=== PATIENT | female | born 1995 | race Caucasian/White ===

== ENCOUNTER 2019-03-10 16:06 | Outpatient (CLI) | payer OTHER, SELFPAY ==
[2019-03-10 16:30] VITALS: BP 116/69; PULSE 98; RESP 18; TEMP 36.9; O2SAT 98; BMI 29.2
== END 2019-03-10 18:01 | disposition home or self-care (01) ==
LOC: OBOUT 16:12 → OB 16:15
PROVIDERS: PCP Specialist; Visit Provider Nurse Practitioner Obstetrics & Gynecology
DX: O21.8 Other vomiting complicating pregnancy (principal); Z3A.33 33 weeks gestation of pregnancy; R19.7 Diarrhea, unspecified
CPT/HCPCS: 59025; 96360

== ENCOUNTER 2019-09-24 12:16 | Emergency (ER) | payer BC, OTHER, SELFPAY ==
[2019-09-24 12:17] VITALS: BP 109/80; PULSE 87; RESP 20; TEMP 36.8; O2SAT 98; BMI 24.7
--- NOTE | 2019-09-24 12:31 | CT_ITS ---
PROCEDURE: CT ABDOMEN PELVIS WO CON CLINICAL INDICATION: possible IUD dislodge Pain, discomfort COMPARISON: No exams were available for comparison TECHNIQUE: Axial images obtained with sagittal and coronal reformats. All CT scans at the facility use one or more dose reduction, viz: automated exposure control, ma/kV adjustment per patient size (including targeted exams where dose is matched to indication, i.e. head), or iterative reconstruction technique. FINDINGS: LOWER THORAX: There is patchy density in the medial aspect of the right middle lobe suggesting an area of atelectasis or infiltrate. ABDOMEN & PELVIS: The liver, gallbladder, spleen, adrenal glands, pancreas, and kidneys have an unremarkable unenhanced appearance. No intestinal obstruction or free air. No evidence of appendicitis. No intestinal obstruction or free air. There is an IUD present. The IUD is in the lower uterine segment more inferior than what 1 would expect. The uterus is anteverted/anteflexed. The left lateral limb of the IUD is near the peripheral aspect of the uterus. No pelvic fluid or adnexal mass evident. No acute bony anomaly. IMPRESSION: 1. There is an IUD present in the lower uterine segment and is somewhat lower than where 1 with normally expect with the left lateral limb near the surface of the uterus but not protruding through the uterus. 2. No pelvic fluid collections. 3. Right basilar atelectasis or infiltrate within the right middle lobe. 4. Otherwise negative CT abdomen pelvis Dictated by: Jamal Rosales MD 09/24/2019 13:32 Electronically signed by Jamal Rosales MD in [place] 09/24/2019 13:32
[2019-09-24 12:46] LABS: Appearance,Urine CLEAR (Clear); Bilirubin,Urine Negative (Negative); Blood, Urine Negative (Negative); Color,Urine YELLOW (Yellow); Glucose,Urine (UA) Negative (Negative); Ketones,Urine Negative (Negative); Leukocyte Esterase,Urine Negative (Negative); Nitrate,Urine Negative (Negative); Protein,Urine Negative (Negative); Specific Gravity, Urine 1.025 (1.005-1.030); Urobilinogen,Urine 0.2 EU/dl (0.2)
[2019-09-24 12:47] LABS: Microscopic, Urine URINE MICROSCOPIC (MICROSCOPIC); Urine Pregnancy, HCG Qual. Negative (Negative)
[2019-09-24 12:48] LABS: Amorphous Sediment,Urine 1+ /lpf; WBC,Urine Occasional #/hpf (0-3)
--- NOTE | 2019-09-24 13:10 | PC.NURSE ---
pt return from ct
--- NOTE | 2019-09-24 14:43 | HMH.EDGENADL ---
ED Disposition Clinical Impression: IUD (intrauterine device) in place Disposition: Home, Self-Care Condition on Discharge: Good Instructions: DI for Urinary Tract Infection (UTI), DI for Urinary Tract Infection in Children Additional Instructions: Follow-up with your [facility] Referrals: Belia Davila [Primary Care Provider] - - Critical Care Critical Care Time: No Attestation: On 09/24/19, the high probability of a clinically significant, sudden or life threatening deterioration of the following system(s) required my full and direct attention, intervention and personal management. The time I documented below is in addition to time spent performing reported procedures but includes the following listed in this critical care notation. Medical Decision Making - Medical Records Medical records reviewed: Yes: I reviewed the patient's medical records. - Semaj Inquiry Pt receiving controlled substance: No Vital Signs: 09/24/19 12:17 Temperature 98.2 F Temperature Source Oral Pulse Rate [Right] 87 Respiratory Rate 20 Blood Pressure [Right Arm] 109/80 L Blood Pressure Mean [Right Arm] 89 02 Sat by Pulse Oximetry 98 - Lab Data Lab results reviewed: Yes: I reviewed the patient's lab results. Lab Results 09/24/19 12:27: Urine Color Yellow, Urine Appearance Clear, Urine pH 6.0, Ur Specific [place] 1.025, Urine Protein Negative, Urine Glucose (UA) Negative, Urine Ketones Negative, Urine Blood Negative, Urine Nitrate Negative, Urine Bilirubin Negative, Urine Urobilinogen 0.2, Ur Leukocyte Esterase Negative, Urine RBC None, Urine WBC Occasional, Ur Squamous Epith Cells 3-5, Amorphous Sediment 1+, Urine Bacteria None 09/24/19 12:27: Urine HCG, Qual Negative - CT Data CT Scan: Abdomen, Pelvis Time Received: 14:00 Preliminary Findings: Normal/NAD General Adult HPI - General Chief complaint: Urogenital-Female Stated complaint: believes IED is dislodged Time Seen by Provider: 09/24/19 14:43 Mode of Arrival: Ambulatory Source of Information: Patient Limitations: No Limitations Description of Symptoms (Recalled from ER Triage Doc. by RN): Pt states she was showering and felt the strings of her IUD come out of her vagina, pt also states she has an uncomfortable feeling in her vagina. - History of Present Illness Onset (ago): hour(s) Location: genitals Radiation: non-radiation Severity: mild Severity scale (1-10): 2 Consistency: constant Relieving factors: none Exacerbating factors: none Associated symptoms: denies other symptoms - Related Data Previous Rx's Medication Instructions Recorded Amoxicillin [Amoxicillin 500mg Tab] 500 mg PO TID 10 Days #30 tab 12/13/18 Allergies Allergy/AdvReac Type Severity Reaction Status Date / Time No Known Allergies Allergy Verified 03/10/18 15:31 [facility] History - Hepatitis A Screen Drug use history?: No High risk sexual behaviors?: No History of sexually transmitted infection?: No Currently employed?: No Childcare worker?: No Do you have indoor plumbing?: Yes Do you have electricity?: Yes Attestation statement:: This patient has been screened for Hepatitis A risk factors. I have reviewed the patient's past medical history: Yes Medical History: Reports:: Asthma Other Surgeries: Yes: No Previous Surgery. No: Fractures: Yes (TAILBONE) Comment: nasal passageway surgery - Social History Smoking Status: Current every day smoker Tobacco Type: cigarettes # Packs/Day (cigarettes): 1 Alcohol Intake: never Alcohol Intake Frequency:: holidays/special occasions only Occupational Status: employed Housing: house Household Members: family Family Hx:: Cancer, Hypertension ROS Obtained: Yes All systems reviewed & no additional complaints - Constitutional Constitutional: Reports system reviewed and no additional complaints, except as docu - Eyes Eyes: Reports system reviewed and no additional complaints, except as docu - ENT Ears, Nose, Mo
[2019-09-24 15:13] VITALS: BP 123/85; PULSE 85; RESP 20; TEMP 36.8; O2SAT 98
== END 2019-09-24 15:40 | disposition home or self-care (01) ==
PROVIDERS: Emergency Provider Family Medicine; PCP Family Medicine Addiction Medicine
DX: Z97.5 Presence of (intrauterine) contraceptive device (principal); Z88.1 Allergy status to other antibiotic agents; F17.210 Nicotine dependence, cigarettes, uncomplicated
CPT/HCPCS: 74176; 81001; 81025; 99282; 99283

== ENCOUNTER 2021-01-05 18:51 | Emergency (ER) | payer OTHER, SELFPAY ==
[2021-01-05 18:55] VITALS: BP 138/92; PULSE 141; RESP 18; TEMP 38.5; O2SAT 97; BMI 25.7
[2021-01-05 19:27] LABS: UTC Strep Screen (Rapid) Negative (Negative)
--- NOTE | 2021-01-05 19:59 | HMH.EDUTC ---
[facility] [place] Disposition Clinical Impression: Strep throat Disposition: Home, Self-Care Condition on Discharge: Good Instructions: Strep Throat, DI for Strep Throat Additional Instructions: Drink plenty of fluids. Take tylenol or ibuprofen for pain or fever. Take the medications as directed. Follow up with your regular doctor. GO TO THE ER FOR ANY WORSENING SYMPTOMS Throw your tooth brush away and get a new one. Prescriptions: Azithromycin [Z-Jb 250mg Tab*] 250 mg PO UD DOSE PK #6 tab Transmission Status: Received by [id number] Referrals: Provider,Referral, [Primary Care Provider] - Time of Disposition: 20:24 Medical Decision Making - Medical Records Medical records reviewed: No: I reviewed the patient's medical records. - Semaj Inquiry Pt receiving controlled substance: No Vital Signs: 01/05/21 18:55 01/05/21 20:25 Temperature 101.3 F H 99.5 F Temperature Source Oral Pulse Rate 102 H Pulse Rate [Right Brachial] 141 H Respiratory Rate 18 18 Blood Pressure 138/92 H Blood Pressure [Right Arm] 138/92 H Blood Pressure Mean [Right Arm] 107 Blood Pressure Source [Right Arm] Automatic Cuff Blood Pressure Position [Right Arm] Sitting 02 Sat by Pulse Oximetry 97 Oxygen Delivery Method Room Air - Lab Data Lab results reviewed: Yes: I reviewed the patient's lab results. Lab Results 01/05/21 19:17: Strep Scn Rapid Clinic Negative Orders (Tests/Meds): ED MEDICATIONS Discontinued Medications Generic Name Dose Route Start Last Admin Trade Name Freq PRN Reason Stop Dose Admin Methylprednisolone Sodium Succinate 125 mg 01/05/21 20:09 01/05/21 20:21 Methylprednisolone Sod Succ 125mg Vial IM 01/05/21 20:10 125 mg ONCE ONE Administration Penicillin G Benzathine 1,200,000 unit 01/05/21 20:09 01/05/21 20:21 Penicillin G Benzathine 1,200,000 Units/2ml Syringe IM 01/05/21 20:10 1,200,000 unit ONCE ONE Administration ORDERS Category Date Time Status Strep Screen Confirmation Routine Micro 01/05/21 19:17 Received [facility] [place] HPI - General Stated complaint: fever and sore throat Time Seen by Provider: 01/05/21 19:59 Mode of Arrival: Ambulatory Source of Information: Patient Limitations: No Limitations Description of Symptoms (Recalled from Triage Doc. by RN): PATIENT C/O FEVER, EAR ACHE, AND SORE THROAT THAT STARTED THIS AFTERNOON. DAUGHTER HAD STREP LAST WEEK HEENT Symptoms (Recalled from RN notes): Yes Resp Symptoms (Recalled from RN notes): No Skin Symptoms (Recalled from RN notes): No MS Symptoms (Recalled from RN notes): No Functional Status (Recalled from RN notes): WNL - History of Present Illness Provider Complaint: She states that she has had a sore throat since earlier today. Her daughter was diagnosed with strep throat last week. - Related Data Previous Rx's Medication Instructions Recorded phenazopyridine 100 mg tablet 100 mg PO TID PRN 0 Days #6 tab 05/15/20 sulfamethoxazole 800 1 tab PO Q12H 10 Days #20 tab 05/15/20 mg-trimethoprim 160 mg tablet Azithromycin [Z-Jb 250mg Tab*] 250 mg PO UD DOSE PK #6 tab 01/05/21 Allergies Allergy/AdvReac Type Severity Reaction Status Date / Time No Known Allergies Allergy Verified 05/15/20 17:08 - Worker's Comp Is this a Worker's Comp case?: No [facility] History - Hepatitis A Screen Drug use history?: No High risk sexual behaviors?: No History of sexually transmitted infection?: No Currently employed?: No Childcare worker?: No Do you have indoor plumbing?: Yes Do you have electricity?: Yes Attestation statement:: This patient has been screened for Hepatitis A risk factors. I have reviewed the patient's past medical history: Yes Medical History: Reports:: Asthma Other Surgeries: Yes: No Previous Surgery. No: Fractures: Yes (SHWETA) Comment: nasal passageway surgery - Social History Smoking Status: Current every day smoker Tobacco Type: cigare
[2021-01-05 20:25] VITALS: BP 138/92; PULSE 102; RESP 18; TEMP 37.5; O2SAT 97
== END 2021-01-05 20:28 | disposition home or self-care (01) ==
PROVIDERS: Emergency Provider Nurse Practitioner Family
DX: J02.0 Streptococcal pharyngitis (principal); J45.909 Unspecified asthma, uncomplicated
CPT/HCPCS: 87880; 96372; 99202; G0463; J0561

== ENCOUNTER 2021-10-22 19:30 | Emergency (ER) | payer OTHER, SELFPAY ==
[2021-10-22 19:43] VITALS: BP 112/76; PULSE 85; RESP 17; TEMP 36.6; O2SAT 98; BMI 28.3
[2021-10-22 19:59] LABS: Apearance,Urine Clear (Clear); Bilirubin,Urine Negative (Negative); Blood, Urine Trace (Negative); Color,Urine Yellow (Yellow); Glucose,Urine (UA) Negative (Negative); Ketones,Urine Negative (Negative); Protein,Urine Negative (Negative); Specific Gravity, Urine 1.025 (1.005-1.030); UTC Leukocyte Esterase,Urine Negative (Negative); UTC Nitrate,Urine Negative (Negative); Urobilinogen,Urine 0.2 EU/dl (0.2)
--- NOTE | 2021-10-22 20:02 | HMH.EDUTC ---
[facility] [place] Clinical Impression: Otitis media Qualifiers: Otitis media type: unspecified Laterality: right Qualified Code(s): H66.91 - Otitis media, unspecified, right ear Disposition: Home, Self-Care Condition on Discharge: Good Instructions: Middle Ear Infection, Cefdinir, Methylprednisolone Additional Instructions: *Monitor Temp, Over the counter Motrin or Tylenol as directed/as needed Tylenol every 4 hours and Motrin every 6 hours (as long as your family doctor has told you that you can take it) for fever or pain. and straight to ER if unable to lower temp less than 101.0 after medication given Take medication as prescribed *Sleep elevated *Humidifier/Vaporizer Follow up IMMEDIATELY for new or worsening symptoms or no Noticeable improvement over the next 48-72 hours. 911 for difficulty breathing or swallowing Prescriptions: methylPREDNISolone [Medrol 4mg tab] 4 mg PO DIRECTED #21 tab Transmission Status: Pending to [facility] Cefdinir [Omnicef 300mg Capsule] 300 mg PO BID #20 cap [facility] Referrals: Provider,Referral, [Primary Care Provider] - As needed Time of Disposition: 20:10 Medical Decision Making - Semaj Inquiry Pt receiving controlled substance: No Semaj was queried for this patient: No Vital Signs: 10/22/21 19:43 Temperature 97.9 F Temperature Source Oral Pulse Rate [Left] 85 Respiratory Rate 17 Blood Pressure [Right Arm] 112/76 Blood Pressure Mean [Right Arm] 88 02 Sat by Pulse Oximetry 98 - Lab Data Lab results reviewed: Yes: I reviewed the patient's lab results. Lab Results 10/22/21 19:58: Urine Color Yellow, Urine Appearance Clear, Urine pH 6.0, Ur Specific [place] 1.025, Urine Protein Negative, Urine Glucose (UA) Negative, Urine Ketones Negative, Urine Blood Trace, Urine Nitrate Negative, Urine Bilirubin Negative, Urine Urobilinogen 0.2, Ur Leukocyte Esterase Negative [facility] [place] - General Stated complaint: R ear ache Time Seen by Provider: 10/22/21 20:02 Description of Symptoms (Recalled from Triage Doc. by RN): patient comes in for right ear pain that began a few days ago, but got worse this am. and patient reports frequent urination for the past 2 weeks HEENT Symptoms (Recalled from RN notes): Yes Resp Symptoms (Recalled from RN notes): No Skin Symptoms (Recalled from RN notes): No MS Symptoms (Recalled from RN notes): No Functional Status (Recalled from RN notes): n/a - History of Present Illness Provider Complaint: Patient states that she has been having pain on and off in her right ear for several days states that this morning she woke up and her right ear was throbbing in pain States that it has continued to through out the day getting worse and feels like it is full and has pressure States that also she noticed she was having some urinary frequency today and wanted to get her urine checked too - Related Data Previous Rx's Medication Instructions Recorded Cefdinir [Omnicef 300mg Capsule] 300 mg PO BID #20 cap 10/22/21 methylPREDNISolone [Medrol 4mg 4 mg PO DIRECTED #21 tab 10/22/21 tab] Allergies Allergy/AdvReac Type Severity Reaction Status Date / Time No Known Allergies Allergy Verified 10/22/21 19:45 - Worker's Comp Is this a Worker's Comp case?: No [facility] History - Hepatitis A Screen Attestation statement:: This patient has been screened for Hepatitis A risk factors. I have reviewed the patient's past medical history: Yes Medical History: Reports:: Asthma Other Surgeries: Yes: No Previous Surgery. No: Fractures: Yes (SHWETA) Comment: nasal passageway surgery - Social History Smoking Status: Current every day smoker Tobacco Type: cigarettes # Packs/Day (cigarettes): 1 Alcohol Intake: never Alcohol Intake Frequency:: holidays/special occasions only Occupational Status: employed Housing: house Household Members: family Family Hx:: Canc
[2021-10-22 20:15] VITALS: BP 112/76; PULSE 85; RESP 17; TEMP 36.6
== END 2021-10-22 20:19 | disposition home or self-care (01) ==
PROVIDERS: Emergency Provider Nurse Practitioner
DX: H66.91 Otitis media, unspecified, right ear (principal)
CPT/HCPCS: 81003; 99212; G0463

== ENCOUNTER 2022-01-31 18:14 | Emergency (ER) | payer OTHER, SELFPAY ==
[2022-01-31 18:40] VITALS: BP 135/82; PULSE 87; RESP 16; TEMP 37; O2SAT 100; BMI 28.3
--- NOTE | 2022-01-31 18:43 | EXP.UTC ---
Discharge Plan Disposition Patient Disposition: Home, Self-Care Condition: Good Prescriptions Prescriptions: New prednisone 20 mg tablet 20 mg PO BID Qty: 10 0RF guaifenesin [Mucinex] 600 mg tablet extended release 12hr 600 mg PO BID PRN (Reason: cough) Qty: 20 0RF azithromycin [Zithromax Z-Jb] 250 mg tablet See Rx Instructions .ROUTE .COMPLEX 5 Days Qty: 6 0RF Rx Instructions: For 250 mg dose pack: take 500 mg today (day 1), then 250 mg for 4 days (days 2-5) No Action methylprednisolone 4 MG tablet 4 mg PO DIRECTED Qty: 21 0RF Rx Instructions: Take as directed on package instructions cefdinir 300 MG capsule 300 mg PO BID Qty: 20 0RF Referrals Follow up/Referrals: Provider,Referral, MD [Primary Care Provider] - See instructions Activity Restrictions/Add. Instructions Additional Instructions/Restrictions: Start antibiotic today. Be sure to complete entire prescription even if feeling better Monitor temp. Tylenol every 4 hours as needed and / or ibuprofen every 6 hours as needed ( As long as your primary care physician has told you that it ok to take both. For fever/aches/pains ER if no less than 101 despite Tylenol or Motrin Humidifier/vaporizer or hot steamy shower Use your Inhaler as prescribed like we discussed. If unsure how to use it, ask pharmacist to demonstrate how. Should help open airways and improve cough, wheezing, and shortness of breath Mucinex for your cough Be sure to drink lots of water. *Start steroid today. Helps with inflammation therefore, cough and wheezing. Follow directions on the package. Reviewed side effects. Patient reports taking them before. Follow up IMMEDIATELY for new or worsening of symptoms OR no noticeable improvement over the next 48-72 hours. 911 immediately for any life threatening symptoms such as chest pain or difficulty breathing Clinical Impressions Clinical Impression: Bronchitis Instructions Patient Instructions: Acute Bronchitis, DI for Ear Pain-Adult Discharge ED Provider: Zaina Hernandez [facility] [place] HPI General Stated complaint: COUGH, CONGESTION, BAUMAN Mode of Arrival: Ambulatory Source of Information: Patient Limitations: No Limitations Time Seen by Provider: 01/31/22 18:44 Description of Symptoms (Recalled from Triage Doc. by RN): pt comes in with c/o cough, congestion, low grade fever, right ear ache, drainage, symptoms began friday HEENT Symptoms (Recalled from RN notes): Yes Resp Symptoms (Recalled from RN notes): Yes Skin Symptoms (Recalled from RN notes): No MS Symptoms (Recalled from RN notes): No Functional Status (Recalled from RN notes): n/a History of Present Illness Provider Complaint: Patient states that on Friday she started feeling bad States that she has been having pressure in both ears, cough, chest congestion and feeling like she is having drainage in the back of her throat States that in the evenings it seems to get worse States that today her ears was hurting worse and she would cough up some drainage at times so she came in to get checked out Related Data Previous Rx's Medication Instructions Recorded cefdinir 300 mg capsule 300 mg PO BID #20 caps 10/22/21 methylprednisolone 4 mg tablet 4 mg PO DIRECTED #21 tabs 10/22/21 azithromycin 250 mg tablet See Rx Instructions PO .COMPLEX 5 01/31/22 (Zithromax Z-Jb) days #6 tabs guaifenesin 600 mg tablet, 600 mg PO BID PRN cough #20 tabs 01/31/22 extended release 12 hr (Mucinex) prednisone 20 mg tablet 20 mg PO BID #10 tabs 01/31/22 Allergies Allergy/AdvReac Type Severity Reaction Status Date / Time No Known Allergies Allergy Verified 01/31/22 18:43 Worker's Comp Is this a Worker's Comp case?: No PFSH PFSH Social History Smoking Status: Current every day smoker tobacco type: cigarettes packs per day: 1 second hand exposure: Yes alcohol intake: ne
[2022-01-31 19:38] VITALS: BP 135/82; PULSE 87; RESP 16; TEMP 37
== END 2022-01-31 19:39 | disposition home or self-care (01) ==
PROVIDERS: Emergency Provider Nurse Practitioner
DX: J40 Bronchitis, not specified as acute or chronic (principal)
CPT/HCPCS: 99212; G0463

== ENCOUNTER 2022-04-24 16:09 | Emergency (ER) | payer OTHER, SELFPAY ==
[2022-04-24 16:11] VITALS: BP 114/97; PULSE 124; RESP 18; TEMP 39.5; O2SAT 100; BMI 28.8
[2022-04-24 16:21] VITALS: BMI 28.8
[2022-04-24 16:22] VITALS: BP 114/97; PULSE 107; O2SAT 100
--- NOTE | 2022-04-24 16:22 | XR_ITS ---
PROCEDURE INFORMATION: Exam: XR Chest Exam date and time: 04/24/2022 4:29 PM Age: 26 years old Clinical indication: Cough TECHNIQUE: Imaging protocol: Radiologic exam of the chest. Views: 2 views. COMPARISON: CT ABDOMEN PELVIS WO CON 09/24/2019 1:02 PM FINDINGS: Lungs: Right middle lobe airspace disease. Pleural spaces: Unremarkable. No pleural effusion. No pneumothorax. Heart/Mediastinum: Unremarkable. No cardiomegaly. Bones/joints: Unremarkable. IMPRESSION: Right middle lobe pneumonia.
[2022-04-24 16:27] LABS: Coronavirus 19, PCR Not Detected (NotDetected); Influenza A, PCR Not Detected (NotDetected); Influenza B, PCR Not Detected (NotDetected)
--- NOTE | 2022-04-24 16:38 | PC.NURSE ---
PT TO XR
--- NOTE | 2022-04-24 16:41 | PC.NURSE ---
PT RETURNED FROM XR
[2022-04-24 17:00] VITALS: BP 106/62; PULSE 100; O2SAT 96
[2022-04-24 17:00] LABS: Chloride 100 mmol/L (98-107); Sodium 136 mmol/L (136-145)
[2022-04-24 17:03] LABS: Alanine Aminotransferase 20 U/L (12-78); Albumin Level 4.4 g/dl (3.5-5.0); Albumin/Globulin Ratio 1.3 (1.1-1.8); Alkaline Phosphatase 38 U/L (38-126); Anion Gap 14.9 mEq/L (5-15); Aspartate Amino Transferase 25 U/L (14-36); Blood Urea Nitrogen 5 mg/dl (7-17); Carbon Dioxide 24 mmol/L (22.0-30.0); Creatinine Clearance Estimated 197 mL/min (50-200); Estimated Glomerular Filt Rate 148 ml/min (>60); GFR (African American) 179 ML/MIN (>60); Globulin 3.3 g/dL (1.3-3.2); Total Protein,Serum 7.7 g/dl (6.3-8.2)
[2022-04-24 17:04] LABS: Glucose 94 mg/dl (74-100)
[2022-04-24 17:07] LABS: Potassium 2.9 mmoL/L (3.5-5.1)
--- NOTE | 2022-04-24 17:07 | PC.NURSE ---
Abbie from lab called critical on patient, Potassium was 2.9, patient name and report stated and verified
--- NOTE | 2022-04-24 17:10 | HMH.EDGENADL ---
Discharge Plan Disposition Patient Disposition: Home, Self-Care Condition: Good Prescriptions Prescriptions: New azithromycin [Zithromax] 250 mg tablet 250 mg PO DAILY 4 Days Qty: 4 0RF Rx Instructions: start on day 2 of therapy potassium chloride 20 mEq tablet,ER particles/crystals 20 meq PO DAILY Qty: 5 0RF No Action methylprednisolone 4 MG tablet 4 mg PO DIRECTED Qty: 21 0RF Rx Instructions: Take as directed on package instructions cefdinir 300 MG capsule 300 mg PO BID Qty: 20 0RF prednisone 20 mg tablet 20 mg PO BID Qty: 10 0RF guaifenesin [Mucinex] 600 mg tablet extended release 12hr 600 mg PO BID PRN (Reason: cough) Qty: 20 0RF azithromycin [Zithromax Z-Jb] 250 mg tablet See Rx Instructions .ROUTE .COMPLEX 5 Days Qty: 6 0RF Rx Instructions: For 250 mg dose pack: take 500 mg today (day 1), then 250 mg for 4 days (days 2-5) Referrals Follow up/Referrals: Gita Mendez APRN [Primary Care Provider] - See instructions Activity Restrictions/Add. Instructions Additional Instructions/Restrictions: Continue taking Augmentin and also add Zithromax as prescribed. Potassium supplement as prescribed. Follow-up with primary care provider if not improved in 4 to 5 days. Continue Tylenol and ibuprofen for fever. Additional instructions for PNEUMONIA: Take antibiotics as prescribed. See your physician as soon as possible for further evaluation. Return immediately if you have an uncontrollable fever greater than 102 degrees, difficulty breathing or shortness of breath, persistent vomiting, or severe chest pain. Clinical Impressions Clinical Impression: Community acquired pneumonia, Acute hypokalemia Stand Alone Forms Stand Alone Forms: Work/School Release Instructions Patient Instructions: DI for Pneumonia -- Adult, DI for Hypokalemia Discharge ED Provider: Tejas Mccray General Adult HPI General Chief complaint: Upper Respiratory Infection Stated complaint: FEVER.CHILLS,COUGH,sob,BAUMAN CONGESTION Time Seen by Provider: 04/24/22 17:17 Mode of Arrival: Ambulatory Source of Information: Patient Limitations: No Limitations Description of Symptoms (Recalled from ER Triage Doc. by RN): PT REPORTS RECURRENT UPPER RESPIRATORY INFECTIONS, INTERMITTENT FEVER, COUGH AND CONGESTION FOR WEEKS STATES SHE WILL GET BETTER BUT SYMPTOMS RETURN. History of Present Illness HPI narrative: Patient states that she has been sick for 1 week. Initially started with sinus symptoms and congestion. She was seen at an urgent treatment center in [place] and diagnosed with upper respiratory infection. She had negative tests for COVID, flu, and strep. She has developed cough and chest pain. She saw her primary care provider yesterday and was diagnosed with sinusitis and bronchitis. Started on Augmentin. She developed a fever over 102 degrees today, called her PCP and was advised to come to the emergency department. States that she has an underlying history of asthma for which she has a metered-dose inhaler, which she has been using. Related Data Previous Rx's Medication Instructions Recorded cefdinir 300 mg capsule 300 mg PO BID #20 caps 10/22/21 methylprednisolone 4 mg tablet 4 mg PO DIRECTED #21 tabs 10/22/21 azithromycin 250 mg tablet See Rx Instructions PO .COMPLEX 5 01/31/22 (Zithromax Z-Jb) days #6 tabs guaifenesin 600 mg tablet, 600 mg PO BID PRN cough #20 tabs 01/31/22 extended release 12 hr (Mucinex) prednisone 20 mg tablet 20 mg PO BID #10 tabs 01/31/22 azithromycin 250 mg tablet 250 mg PO DAILY 4 days #4 tabs 04/24/22 (Zithromax) potassium chloride 20 mEq 20 meq PO DAILY #5 tabs 04/24/22 tablet,extended release(part/cryst) Allergies Allergy/AdvReac Type Severity Reaction Status Date / Time No Known Allergies Allergy Verified 01/31/22 18:43 [facility] Disclaimer: The information contained in this section may have been updated afte
[2022-04-24 17:16] LABS: Basophils # 0.1 K/mm3 (0-0.2); Basophils % 0.5 % (0.1-2.0); Eosinophils # 0.1 K/mm3 (0.0-0.4); Eosinophils % 0.3 % (0.1-12.0); Hematocrit 44.2 % (37.0-47.0); Hemoglobin 14.7 g/dL (12.2-16.2); Lymphocytes # 1.4 K/mm3 (0.7-4.5); Lymphocytes % 7.5 % (10-50); Mean Corpuscular HGB Conc 33.3 g/dL (31.8-35.4); Mean Corpuscular Hemoglobin 30.8 pg (27.0-31.2); Mean Corpuscular Volume 92.7 fl (81-99); Mean Platelet Volume 8.3 fl (7.4-10.4); Monocytes # 1.1 K/mm3 (0.1-1.0); Monocytes % 6.2 % (1.7-9.3); Neutrophils # 15.3 K/mm3 (1.8-7.8); Neutrophils % 85.5 % (37.0-80.0); Platelet Count 309 K/mm3 (142-424); Red Blood Count 4.77 M/mm3 (4.20-5.40); Red Cell Distribution Width 12.7 % (11.5-17.5); White Blood Count 17.9 K/mm3 (4.8-10.8)
[2022-04-24 17:23] LABS: MANUAL DIFFERENTIAL MANUAL DIFFERENTIAL (MANUAL DIFF)
[2022-04-24 17:30] LABS: Lymphocytes % 13 % (10-50); Monocytes % 1 % (2-9); Neutrophils % 86 % (42-76); Platelet Estimate Normal; RBC Morphology Normal; Total Cells Counted 100
[2022-04-24 17:31] VITALS: BP 115/63; PULSE 98; O2SAT 96
[2022-04-24 18:00] VITALS: BP 108/62; PULSE 100; O2SAT 96
[2022-04-24 19:03] VITALS: BP 99/63; PULSE 98; RESP 18; TEMP 37.4; O2SAT 100
== END 2022-04-24 19:04 | disposition home or self-care (01) ==
PROVIDERS: Emergency Provider Emergency Medicine; PCP Nurse Practitioner Family
DX: J18.9 Pneumonia, unspecified organism (principal); E87.6 Hypokalemia; F17.210 Nicotine dependence, cigarettes, uncomplicated; Z20.822 Contact with and (suspected) exposure to COVID-19
CPT/HCPCS: 71046; 80053; 85007; 85025; 96361; 96374; 96375; 99285; C9803; J0456; J0696; U0003; U0005

== ENCOUNTER 2023-08-15 16:02 | Outpatient (CLI) | payer BC, OTHER, SELFPAY ==
[2023-08-15 16:24] LABS: Basophils # 0.1 K/mm3 (0-0.2); Basophils % 0.6 % (0.1-2.0); Eosinophils # 0.1 K/mm3 (0.0-0.4); Eosinophils % 0.8 % (0.1-12.0); Hematocrit 42.8 % (37.0-47.0); Hemoglobin 14.2 g/dL (12.2-16.2); Lymphocytes # 2.8 K/mm3 (0.7-4.5); Lymphocytes % 29.4 % (10-50); Mean Corpuscular HGB Conc 33.2 g/dL (31.8-35.4); Mean Corpuscular Hemoglobin 31.1 pg (27.0-31.2); Mean Corpuscular Volume 93.8 fl (81-99); Mean Platelet Volume 7.5 fl (7.4-10.4); Monocytes # 0.4 K/mm3 (0.1-1.0); Monocytes % 4.6 % (1.7-9.3); Neutrophils # 6.2 K/mm3 (1.8-7.8); Neutrophils % 64.7 % (37.0-80.0); Platelet Count 286 K/mm3 (142-424); Red Blood Count 4.56 M/mm3 (4.20-5.40); Red Cell Distribution Width 13.3 % (11.5-17.5); White Blood Count 9.6 K/mm3 (4.8-10.8)
[2023-08-15 16:36] LABS: Chloride 107 mmol/L (98-107); Potassium 3.7 mmoL/L (3.5-5.1); Sodium 141 mmol/L (136-145)
[2023-08-15 16:39] LABS: Alanine Aminotransferase 15 U/L (12-78); Albumin Level 4.2 g/dl (3.5-5.0); Albumin/Globulin Ratio 1.5 (1.1-1.8); Alkaline Phosphatase 31 U/L (38-126); Anion Gap 9.7 mEq/L (5-15); Aspartate Amino Transferase 25 U/L (14-36); Bilirubin,Total 0.5 mg/dl (0.2-1.3); Blood Urea Nitrogen 11 mg/dl (7-17); Calcium 9.5 mg/dl (8.4-10.2); Carbon Dioxide 28 mmol/L (22.0-30.0); Estimated Glomerular Filt Rate 99 ml/min (>60); GFR (African American) 120 ML/MIN (>60); Globulin 2.8 g/dL (1.3-3.2); Glucose 96 mg/dl (74-100)
[2023-08-15 16:40] LABS: Magnesium 2.1 mg/dl (1.6-2.3)
[2023-08-15 17:17] LABS: 25-OH Vitamin D, Total 21.3 ng/mL (30-100)
[2023-08-15 17:18] LABS: Free T4 (Free Thyroxine) 0.81 ng/dl (0.78-2.19)
[2023-08-15 17:59] LABS: Thyroid Stimulating Hormone 0.75 uIU/mL (0.465-4.68)
[2023-08-15 18:19] LABS: Vitamin B12 300 pg/mL (239-931)
== END 2023-08-15 23:59 | disposition home or self-care (01) ==
LOC: LAB 16:04
PROVIDERS: PCP Internal Medicine Adolescent Medicine; Visit Provider Physician Assistant
DX: R53.83 Other fatigue (principal); E55.9 Vitamin D deficiency, unspecified; M54.50 Low back pain, unspecified; Z68.28 Body mass index [BMI] 28.0-28.9, adult
CPT/HCPCS: 36415; 80053; 82306; 82607; 83735; 84439; 84443; 85025

== ENCOUNTER 2023-09-16 17:55 | Emergency (ER) | payer BC, OTHER, SELFPAY ==
[2023-09-16 18:45] VITALS: BP 130/85; PULSE 70; RESP 18; TEMP 37; O2SAT 98; BMI 30.1
--- NOTE | 2023-09-16 18:51 | XR_ITS ---
PROCEDURE INFORMATION: Exam: XR Left Foot Exam date and time: 09/16/2023 7:19 PM Age: 28 years old Clinical indication: Pain; Foot; Left TECHNIQUE: Imaging protocol: Radiologic exam of the left foot. Views: 3 or more views. COMPARISON: CR Ankle L 09/16/2023 7:16 PM FINDINGS: Bones/joints: See Soft tissues finding. Soft tissues: Moderate soft tissue swelling without acute osseous abnormality. IMPRESSION: Moderate soft tissue swelling without acute osseous abnormality.
--- NOTE | 2023-09-16 18:51 | XR_ITS ---
PROCEDURE INFORMATION: Exam: XR Left Ankle Exam date and time: 09/16/2023 7:16 PM Age: 28 years old Clinical indication: Pain; Ankle; Left; Additional info: Pain. Pain and swelling on lateral side TECHNIQUE: Imaging protocol: Radiologic exam of the left ankle. Views: 3 or more views. COMPARISON: No relevant prior studies available. FINDINGS: Bones/joints: See Soft tissues finding. Soft tissues: Moderate soft tissue swelling without acute osseous abnormality. IMPRESSION: Moderate soft tissue swelling without acute osseous abnormality.
--- NOTE | 2023-09-16 19:23 | ED_ITS ---
Discharge Plan Disposition Patient Disposition: Home, Self-Care Condition: Good Prescriptions Prescriptions: No Action fluticasone propionate 50 mcg/actuation spray,suspension See Rx Instructions .ROUTE .COMPLEX Rx Instructions: see rx instructions Referrals Follow up/Referrals: Joaquin Jordan MD [Primary Care Provider] - See instructions Activity Restrictions/Add. Instructions Additional Instructions/Restrictions: wear foot brace/jazzy for added support. Take Tylenol/Motrin as needed for pain. Keep follow up with PCP. Clinical Impressions Clinical Impression: Acute pain of left foot Instructions Patient Instructions: DI for Foot Pain Discharge ED Provider: Melanie Garland [facility] General Stated complaint: LT foot painful, swollen Mode of Arrival: Ambulatory Source of Information: Patient Limitations: No Limitations Time Seen by Provider: 09/16/23 19:24 Description of Symptoms (Recalled from Triage Doc. by RN): Pt's left foot is swollen and hurting for the last week and wants to get it checked out. HEENT Symptoms (Recalled from RN notes): No Resp Symptoms (Recalled from RN notes): No Skin Symptoms (Recalled from RN notes): No MS Symptoms (Recalled from RN notes): Yes Functional Status (Recalled from RN notes): n/a History of Present Illness Provider Complaint: Pt reports that her left foot started hurting a week and a half ago for no apparent reason. She states that she feels like her ankle is going to buckle on her at times. She states that her foot has swollen over her sandals. She has taken Ibuprofen for her symptoms. Related Data Home Medications Medication Instructions Recorded Confirmed fluticasone propionate 50 See Rx Instructions .Route .COMPLEX 09/16/23 09/16/23 mcg/actuation nasal spray,suspension Allergies Allergy/AdvReac Type Severity Reaction Status Date / Time No Known Allergies Allergy Verified 09/16/23 19:16 Worker's Comp Is this a Worker's Comp case?: No [facility] Disclaimer: The information contained in this section may have been updated after the patient was seen, as this information can be updated by other users. Social History Smoking Status: Current every day smoker tobacco type: cigarettes packs per day: 1 second hand exposure: Yes alcohol intake: never current occupational status: employed Travel in the last 8 weeks: None household members: family housing: house ROS Obtained: Yes All systems reviewed & no additional complaints except as documented Constitutional Constitutional: Reports system reviewed and no additional complaints, except as documented Eyes Eyes: Reports system reviewed and no additional complaints, except as documented ENT Ears, Nose, Mouth, and Throat: Reports system reviewed and no additional complaints, except as documented Cardiovascular Cardiovascular: Reports system reviewed and no additional complaints, except as documented Respiratory Respiratory: Reports system reviewed and no additional complaints, except as documented Gastrointestinal Gastrointestingal: Reports system reviewed and no additional complaints, except as documented Genitourinary Female Genitourinary: Reports system reviewed and no additional complaints, except as documented Musculoskeletal Musculoskeletal: Reports system reviewed and no additional complaints, except as documented and Reports as per HPI Comments: left foot pain and swelling Integumentary/Breasts Skin/Breast: Reports system reviewed and no additional complaints, except as documented Neurologic Neurologic: Reports system reviewed and no additional complaints, except as documented Endocrine Endocrine: Reports system reviewed and no additional complaints, except as documented Hematologic/Lymphatic Henatologic/Lymphatic: Reports system reviewed and no additional complaints, except as documented Allergic/Immunologic Allergic/Immunologic: Reports system reviewed and no additional complaints, except as documented Physical Exam General General appearance: alert and in no apparent distress Head Head exam: atraumatic and normocephalic Eye Eye exam: Present normal appearance ENT ENT exam: Present normal exam and normal oropharynx Neck Neck exam: Present normal inspection Chest Chest inspection: Present normal inspection and symmetric chest wall rise Respiratory Respiratory exam: Present normal lung sounds bilaterally Cardiovascular Cardiovascular exam: Present regular rate and normal rhythm Abdominal Exam Abdominal exam: Present soft and normal bowel sounds Extremities Exam Extremities exam: Present tenderness Expanded Lower Extremity Exam Left: Knee exam: Present normal inspection Lower leg exam: Present normal inspection Ankle exam: Present tenderness Foot/toe exam: Present tenderness Top foot image: 2 1. tenderness on palpitation Neurovascular/Tendon exam: Present normal capillary refill Gait: observed and normal Back Exam Back exam: Present normal inspection Neurological Exam Neurological exam: Present alert and oriented X3 Psychiatric Psychiatric exam: Present normal affect and normal mood Skin Skin exam: Present warm, dry and intact Lymphatic Lymphatic Findings: no adenopathy Medical Decision Making Semaj Inquiry Pt receiving controlled substance: No Semaj was queried for this patient: No Vital Signs: 09/16/23 18:45 Temperature 98.6 F Temperature Source Oral Pulse Rate [Right Radial] 70 Respiratory Rate 18 Blood Pressure [Right Arm] 130/85 Blood Pressure Mean [Right Arm] 100 Blood Pressure Source [Right Arm] Automatic Cuff Blood Pressure Position [Right Arm] Sitting 02 Sat by Pulse Oximetry 98 Oxygen Delivery Method Room Air Orders (Tests/Meds): ORDERS Category Date Time Status Ankle XR - Left minimum 3 Views [XR ankle LT min 3V] Exams 09/16/23 18:51 Ordered Stat XR foot LT min 3V Stat Exams 09/16/23 18:51 Ordered
[2023-09-16 20:29] VITALS: BP 130/85; PULSE 70; RESP 18; TEMP 37; O2SAT 98
== END 2023-09-16 20:05 | disposition home or self-care (01) ==
PROVIDERS: Emergency Provider Nurse Practitioner Family; PCP Internal Medicine Adolescent Medicine
DX: M79.672 Pain in left foot (principal); F17.210 Nicotine dependence, cigarettes, uncomplicated
CPT/HCPCS: 73610; 73630; 99212; 99213; G0463

== ENCOUNTER 2024-01-21 09:14 | Outpatient (POV) | payer BC, OTHER, SELFPAY | END 2024-01-21 23:59 | disposition home or self-care (01) | LOC: SC 09:14 | PROVIDERS: Visit Provider Specialist/Technologist | DX: Z00.00 Encounter for general adult medical examination without abnormal findings (principal) ==